=== PATIENT | male | born 1995 | race Caucasian/White ===

== ENCOUNTER 2019-11-30 06:37 | Emergency (ER) | payer SELFPAY ==
[~2019-11-30] VITALS: Ht 172.7 cm; Wt 70.5 kg
[2019-11-30 06:43] VITALS: BP 113/69; TEMP 98.4
[2019-11-30] MEDS ORDERED: NORCO 325 MG-51 TAB PO (07:29)
[2019-11-30 08:00] VITALS: PULSE 85
== END 2019-11-30 08:00 | disposition home or self-care (01) ==
LOC: COL.ER 06:37
DX: S43.004A Unspecified dislocation of right shoulder joint, initial encounter (principal); F17.210 Nicotine dependence, cigarettes, uncomplicated; W10.9XXA Fall (on) (from) unspecified stairs and steps, initial encounter; Y92.59 Other trade areas as the place of occurrence of the external cause